=== PATIENT | female | born 1975 | race Two or more races ===

== ENCOUNTER → 2017-02-27 | Outpatient (CLI) | payer BC | LOC: CIMAGING 10:55 | PROVIDERS: ATTEND Physician Assistant Medical | DX: Z12.31 Encounter for screening mammogram for malignant neoplasm of breast (principal) | CPT/HCPCS: G0202 ==

== ENCOUNTER → 2018-05-18 | Outpatient (CLI) | payer BC | LOC: CIMAGING 10:58 | PROVIDERS: ATTEND Physician Assistant Medical | DX: Z12.31 Encounter for screening mammogram for malignant neoplasm of breast (principal) ==